=== PATIENT | female | born 1980 ===

== ENCOUNTER → 2018-06-07 | Outpatient (CLI) | payer OTHER ==
[~2018-06-07] MED LIST: MULT1CAP59 PO
[2018-06-07 12:08] LABS: PLATELET COUNT, AUTOMATED 286 K/uL (150-450)
== END ==
LOC: LAB 08:26
PROVIDERS: ATTEND Obstetrics & Gynecology
DX: Z34.01 Encounter for supervision of normal first pregnancy, first trimester (principal)
CPT/HCPCS: 36415; 81001; 85025; 86592; 86703; 86762; 86850; 86900; 86901; 87088; 87340

== ENCOUNTER → 2018-06-24 | Outpatient (CLI) | payer OTHER | LOC: LAB 11:35 | PROVIDERS: ATTEND Student in an Organized Health Care Education/Training Program | DX: Z34.91 Encounter for supervision of normal pregnancy, unspecified, first trimester (principal) | CPT/HCPCS: 87491; 87591 ==

== ENCOUNTER → 2018-09-16 | Outpatient (CLI) | payer OTHER ==
--- NOTE | 2018-09-17 02:28 | RADIOLOGY IMAGING REPORT ---
FACILITY: [facility] - [place] PATIENT NAME: Alesha Delgado : 1980 MR: [id number] V: [id number] EXAM DATE: ORDERING PHYSICIAN: SHIV PAL TECHNOLOGIST: Location: [facility] [place] Patient: Alesha Delgado : 1980 Visit/Account:[id number] Date of Sevice: 09/16/2018 ultrasound: Indication: anatomical survey. Technique: Routine imaging, with Doppler. Comparison: None available. position and heart rate: There is a single live intrauterine gestation in a variable position. The heart rate is 158. anatomy: The head, face, spine, heart, diaphragm, stomach, kidneys, bladder, and extremities ar e unremarkable, as visualized. A three-vessel umbilical cord was observed. The cord insertions appear unremarkable. Measurements, EFA, and PHOEBE: BPD - 5.2 cm (21 weeks 6 days) (69th percentile) Head circumference - 19.7 cm (22 weeks 0 days) (66th percentile) Abdominal circumference - 16.3 cm (21 weeks 3 days) (44th percentile) Femur length - 3.6 cm (21 weeks 3 days) (42nd percentile) EFW - 422 g (51st percentile) Estimated age - 21 weeks 5 days PHOEBE - 01/22/2019 Placenta: Anterior and homogeneous. There are no signs of placenta previa. Cervical length: Not evaluated. The cervix is closed. Amniotic fluid: The TAYO 22.6 cm. The MVP was 6.2 cm. IMPRESSION: There is a single live intrauterine gestation in a variable position, as detailed above. The estimated age is 21 weeks 5 days. Report Dictated By: Layton Cleveland MD at 09/17/2018 2:17 AM Report E-Signed By: Layton Cleveland MD at 09/17/2018 2:25 AM WSN:[id number]
== END ==
LOC: US 13:29
PROVIDERS: ATTEND Student in an Organized Health Care Education/Training Program
DX: Z36.89 Encounter for other specified antenatal screening (principal); Z3A.21 21 weeks gestation of pregnancy

== ENCOUNTER → 2018-11-07 | Outpatient (CLI) | payer OTHER ==
[~2018-11-07] MED LIST changes: +DIPH0.5S2 IM
[2018-11-07 12:19] LABS: PLATELET COUNT, AUTOMATED 269 K/uL (150-450)
== END ==
LOC: LAB 08:18
PROVIDERS: ATTEND Student in an Organized Health Care Education/Training Program
DX: Z34.92 Encounter for supervision of normal pregnancy, unspecified, second trimester (principal)
CPT/HCPCS: 82950; 85025

== ENCOUNTER → 2018-11-12 | Outpatient (CLI) | payer OTHER | LOC: LAB 07:25 | PROVIDERS: ATTEND Student in an Organized Health Care Education/Training Program | DX: O99.810 Abnormal glucose complicating pregnancy (principal) | CPT/HCPCS: 36415; 82951; 82952 ==

== ENCOUNTER → 2018-12-30 | Outpatient (CLI) | payer OTHER | LOC: LAB 13:29 | PROVIDERS: ATTEND Advanced Practice Midwife | DX: Z36.85 Encounter for antenatal screening for Streptococcus B (principal) | CPT/HCPCS: 87081 ==

== ENCOUNTER 2019-01-15 16:42 | Inpatient (IN) | payer OTHER ==
[2019-01-15] MEDS ORDERED: ACETAMINOPHEN 325 MG TAB PO PRN (17:10)
[2019-01-15] MEDS: IBUPROFEN 800 MG TAB PO SCH (17:10)
[2019-01-15] MEDS ORDERED: BENZOCAINE 20% 60 ML BTL TP PRN (17:10)
[2019-01-15] MEDS ORDERED: MAGNESIUM HYDROXIDE* 30ML UDCP PO PRN (17:10)
[2019-01-15] MEDS ORDERED: LANOLIN OINT 7 GM TUBE TP PRN (17:10)
[2019-01-15] MEDS ORDERED: HYDROCORTISONE 2.5% CR 30GM TB PR PRN (17:10)
[2019-01-15] MEDS ORDERED: OXYTOCIN 10 UNIT/ML SDV IM ONE (17:10)
--- NOTE | 2019-01-15 17:15 | History & Physical ---
History of Present Illness Age of Patient: 38 : 3 Para or TPAL: 2 EDC per LMP: Jan 25, 2019 Estimated Gestational Age: 38.4 Chief Complaint Pt reports that contactions began at 0400 am, but were very irregular and disorganized at that time. At about 2pm they became regular and painful. Her water was intact until she was in the car coming in. She arrived on the unit at 1642 with the strong urge to push. +FM and no VB. Pt denies ORTA, vision changes and RUQ pain. History Patient's Blood Type: B Positive Rubella Status: Immune Group B Strep Screen: Negative Allergies: Coded Allergies: No Known Drug Allergies (Unverified , 06/07/18) Family History: Blood clots FATHER FH: cancer MGM (lung ) PGF FH: cardiovascular disease FATHER (stents ) FH: hypertension MOTHER Med Rec Home Meds Active Scripts Ibuprofen (IBUPROFEN) 800 Mg Tablet, 800 MG PO Q8H for 10 Days, #30 TAB 0 Refills Prov:BENJAMÍN PERLA DO 01/16/19 Reported Medications Multivitamin (MULTIVITAMINS) 1 Each Capsule, 1 EACH PO, CAPSULE 06/07/18 Review of Systems Constitutional: No Fever Eyes: No Vision Change Cardiovascular: No Chest Pain Gastrointestinal: No Nausea, No Vomiting; Abdominal Pain (uterine contractions) Genitourinary: No Dysuria Psychiatric: No Depression, No Anxiety Exam General Exam Vital Signs Vital Signs Date Time Temp Pulse Resp B/P (MAP) Pulse Ox O2 Delivery O2 Flow Rate FiO2 01/16/19 17:30 98.0 83 16 129/82 (98) 01/16/19 12:50 Room Air 01/16/19 08:53 95 General Apperance: Alert/Awake/No Acute Distress Neuro: No Gross deficits Eyes: Normal Extraocular Movement & Vison ENT: Normal Cardiovascular: Regular Rate and Rhythm Respiratory: No Respiratory Distress, Clear to Auscultation Abdomen: Gravid - Non-Tender, RUQ Non-Tender : Normal Musculoskeletal: No Weakness/Pain Extremities: No Cyanosis,Clubbing or Edema Integumentary: Skin Intact without Lesions or Rash Psychological: Alert & Oriented X3, Appropriate Mood & Affect Vaginal Discharge/Fluid?: Bloody Show, Clear Fluid Cervical Dialation: 10 (complete upon arrival) Cervical Effacement (%): 100 Cervical Consistency: Soft Cervical Position: Anterior Station: +2 Presentation: Vertex Uterine Contraction Strength: Strong UC Resting Tone: Soft Fetus Feeling Movement?: Yes Estimated Weight(grams): 3500 Medical Decision Making Data Points Result Diagram: 01/16/19 0557 Assessment and Plan 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 at 38w4d wks with an Estimated Date of D elivery: 01/25/19 dated by LMP and first trimester US Labor state: Transition labor with strong urge to push. Ordered RN to monitor FHT and prepare for delivery well-being: Category I FHT upon arrival- monitor continuously during pushing Maternal well-being: VSS, normotensive and afebrile, SROM for moderate clear fluid in the car PNL: GBS neg, Type/Rh B+, rubella immune Pain Management: None Feed: Breast c/b: * AMA Anticipate , 2 RNs continuously at bedside and CNM immediately on the way from home for rapid delivery SAMANTHA DIAS CNM Jan 15, 2019 17:15
--- NOTE | 2019-01-15 17:23 | OB Delivery Note ---
Delivery Note Vaginal Delivery Type: Spont. Vaginal Delivery Delivery Date: Jan 15, 2019 Delivery Time: 16:49 Estimated Gestational Age(wks): 38.4 Infant Sex: Female [place] Apgars: 1 Minute (8), 5 Minute (9) Delivery Complications: Other (body cord) Notes: Pt was admitted to the family care unit in transition. Cervical exam on admission was 10/100/+2, She had SROM on 01/15/19 at 1630 for clear moderate fluid in the car. Pt was GBS negative. FHR was CAT I when she arrived on the unit. Pt utilized none primarily for pain management. Pt was completely dilated on 01/15/19 at 1642 when she arrived on the unit and pt began pushing spontaneously once she got to the bed. At 1649 pt had a prec ipitous NSVB of live female infant by the OB RN, APGARS 8/9, weight not recorded at time of note. Per the RN head delivered spontaneously in the OA position with no nuchal cord, but one body cord that the baby easily delivered through. Per the RN the anterior shoulder was delivered a traumatically and the posterior shoulder followed. Body delivered easily.When I entered the room at 1652 the was on the maternal abdomen, being dried and stimulated by the nurse and noted to have a spontaneous cry and spontaneous movement of all 4 extremities. The cord was then clamped X 2 by the RN and cut by patient's spouse. Mother was in SF position. At 1653 the placenta and membranes delivered spontaneous and intact with a 3 vessel cord by CNM after gentle downward traction. 20 units of Pitocin was given IM to firm the uterus and started immediately after placenta delivery. Upon inspection of the perineum it was found to be intact. Hemostasis observed. No repair necessary. EBL 200 with fundus firm with minimal bleeding. Mom and baby were left in stable condition. initiated. "I personally examined the patient and there are no unintended foreign objects in the vagina and all sponge and lap counts were correct." Sarita Khan CNM was present immediately after the and for the placenta delivery and Dr. Lozano was my OB backup. Cullet Washer in Attendence: SARITA Walker CNM Jan 15, 2019 17:23
[2019-01-15] MEDS: APAP/HYDROCODONE 325/5 TAB PO PRN ×2 (17:24→18:11)
[2019-01-15] MEDS: GLYCERIN/WITCH HAZEL LEAF 1 PK TOP PRN ×2 (17:32→19:00)
[2019-01-15 20:45] VITALS: BP 138/83
[2019-01-15] MEDS: DOCUSATE CALCIUM 240 MG CAP PO SCH (21:05)
[2019-01-16] MEDS: IBUPROFEN 800 MG TAB PO SCH ×3 (00:31→17:29)
[2019-01-16 00:37] VITALS: BP 144/77
[2019-01-16 02:30] VITALS: BP 143/82
--- NOTE | 2019-01-16 08:43 | OB/GYN Progress Note ---
OB Subjective Progress Notes Subjective Pt doing well. No complaints. . Lochia light. No headache or vision problems. 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 Anticipate d/c home this evening and follow up in office in 1-2 weeks. ) Problems: (1) (spontaneous vaginal delivery) (2) Hypertension, condition or complication BENJAMÍN PERLA DO Jan 16, 2019 08:43
--- NOTE | 2019-01-16 08:45 | OB/GYN Discharge Summary ---
Discharge Summary Reason for Hosp/Final Diag: (1) (spontaneous vaginal delivery) Status: Resolved (2) Hypertension, condition or complication Status: Acute Hospital Course & Plan: Will observe for now, BP mildly elevated. Lates Vital Signs Vital Signs Date Time Temp Pulse Resp B/P (MAP) Pulse Ox O2 Delivery O2 Flow Rate FiO2 01/16/19 02:30 98.1 80 17 143/82 (102) 94 Room Air Weight (Pounds): 180 Result Diagram: 01/16/19 0557 Condition: Improved Discharge: Home, Self Prison Meds Reported Medications Multivitamin (MULTIVITAMINS) 1 Each Capsule, 1 EACH PO, CAPSULE 06/07/18 Follow up with: [facility] [phone] Discharge Diet: As Tolerates Discharge Activity: As Tolerates, No Heavy Lifting x 6 wks, Pelvic Rest BENJAMÍN PERLA DO Jan 16, 2019 08:45
[2019-01-16] MEDS ORDERED: IBUP800T37 PO (08:47)
[2019-01-16 08:53] VITALS: BP 126/75
[2019-01-16] MEDS: DOCUSATE CALCIUM 240 MG CAP PO SCH (08:53)
[2019-01-16 12:50] VITALS: BP 130/79
--- NOTE | 2019-01-16 16:07 | OB/GYN Progress Note ---
OB Subjective Progress Notes Subjective Pt is feeling well. No preeclampsia symptoms. OB Objective Physical Exam Vital Signs Date Time Temp Pulse Resp B/P (MAP) Pulse Ox O2 Delivery O2 Flow Rate FiO2 01/16/19 12:50 98.3 89 18 130/79 (96) Room Air 01/16/19 08:53 95 General Appearance: Alert/Awake/No Acute Distress Psychological: Alert & Oriented X3, Appropriate Mood & Affect Result Diagram: 01/16/19 0557 Assessment and Plan Problems: (1) examination following vaginal delivery Assessment & Plan: PPD#1 s/p . BP have settled down to normal range today. I have recommended she have a BP check next week. She would like to go home today and baby is doing well. Will discharge to home [place]. RONN VU MD Jan 16, 2019 16:07
[2019-01-16 17:30] VITALS: BP 129/82
== END 2019-01-16 18:50 | disposition home or self-care (01) | DRG 807 ==
LOC: INTOOBSV 16:42 → OBSVTOIN 16:42 → OB 16:42
PROVIDERS: ADMIT Obstetrics & Gynecology; ATTEND Obstetrics & Gynecology
PROC: 10E0XZZ Delivery of Products of Conception, External Approach (ICD-10-PCS; principal; 1991-01-15)
DX: O62.3 Precipitate labor (principal); Z37.0 Single live birth; O69.2XX0 Labor and delivery complicated by other cord entanglement, with compression, not applicable or unspecified; Z3A.38 38 weeks gestation of pregnancy
CPT/HCPCS: 36415; 85027; 86850; 86900; 86901; J2590